=== PATIENT | male | born 1985 | race Caucasian/White ===

== ENCOUNTER 2017-08-27 18:39 | Emergency (ER) | payer OTHER ==
[~2017-08-27] VITALS: Ht 172.7 cm; Wt 81.5 kg
[2017-08-27 19:12] LABS: HEMOGLOBIN 14.1 G/DL (12.5-16.6); MCH 31.1 PG (29.0-34.0); MCHC 36.2 G/DL (30.0-36.0); MCV 85.9 FL (86-99); PLATELET COUNT 261 K/uL (156-360); RBC DIS.WIDTH-CV 11.2 % (11.8-14.6); RBC DIS.WIDTH-SD 34.8 % (39-53); RED BLOOD COUNT 4.54 M/uL (4.00-5.50); WHITE BLOOD COUNT 9.3 K/uL (4.1-10.2)
[2017-08-27 19:23] LABS: CHLORIDE 103 mEq/L (99-109); SODIUM 140 mEq/L (136-147)
[2017-08-27 19:24] LABS: GLUCOSE 106 mg/dL (70-99)
[2017-08-27 19:28] LABS: CREATININE 1.1 mg/dL (0.6-1.3)
[2017-08-27 19:29] LABS: UREA NITROGEN (BUN) 20 mg/dL (9-23)
[2017-08-27 19:32] LABS: TROP-I INTERPRETATION NEGATIVE; TROPONIN-I < 0.01 ng/mL (0.0-0.30)
[2017-08-27 19:33] LABS: GFR ESTIMATE (CALCULATED) > 59 mL/min/ (58.99-99999)
[2017-08-27 20:11] VITALS: BP 126/73
== END 2017-08-27 20:13 | disposition home or self-care (01) ==
LOC: EME 18:39
PROVIDERS: Nurse Practitioner Family
DX: R07.9 Chest pain, unspecified (principal); M79.602 Pain in left arm; F41.9 Anxiety disorder, unspecified; F43.9 Reaction to severe stress, unspecified; Z87.891 Personal history of nicotine dependence
CPT/HCPCS: 71046; 80048; 84484; 85027; 93005; 99281; 99284